=== PATIENT | female | born 1985 | race Caucasian/White ===

== ENCOUNTER 2025-01-21 12:58 | Outpatient (REF) | payer OTHER, SELFPAY ==
[2025-01-21 15:41] LABS: C Reactive Protein < 0.04 mg/dL (< or = 0.50); Magnesium 2.1 mg/dL (1.6-2.6)
[2025-01-21 16:13] LABS: Folate 7.4 ng/mL (> or = 4.0); Vitamin B12 344 pg/mL (200-900)
[2025-01-24 17:58] LABS: Transglutaminase IgA <1.0 U/mL
[2025-01-26 14:39] LABS: Vitamin D 25-OH, D2 <4 ng/mL; Vitamin D 25-OH, D3 20 ng/mL; Vitamin D 25-OH, Total 20 ng/mL (30-100)
== END 2025-01-21 12:59 | disposition home or self-care (01) ==
LOC: HO.LAB 12:58
PROVIDERS: PCP Nurse Practitioner Primary Care; Visit Provider Nurse Practitioner Family
DX: R19.7 Diarrhea, unspecified (principal); N18.9 Chronic kidney disease, unspecified; K58.9 Irritable bowel syndrome, unspecified; R10.9 Unspecified abdominal pain
CPT/HCPCS: 36415; 82306; 82607; 82746; 83735; 86140; 86364

== ENCOUNTER 2025-01-21 12:58 | Outpatient (AMB) | payer OTHER, SELFPAY ==
--- NOTE | 2025-01-21 13:04 | A.OFFVIS_ITS ---
Vital Signs 01/21/25 13:10 Height 5 ft 6 in Weight 138 lb BMI 22.3 BP 122/78 Blood Pressure Location Rt brachial Position Sitting Pulse 80 Pulse Source Pulse Oximeter Pulse Oximetry (%) 98 Oxygen Delivery Method Room Air Intake Visit Reasons: irregular bm Intake Note: NEW PATIENT for initial consult for fecal abn. Prior hx of colo/egd? N Chief Complaint; C/O frequent diarrhea and general GI upset. Pt denies any additional concerns at this time. 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 Patient was sent to us by her PCP. Patient has been dealing with irregular bowels mostly loose stools postprandially. Occasional blood in his stool. No known family history of inflammatory bowel disease. Patient reports that her symptoms have been going on for very long time. She is unsure if they ever rule out inflammatory bowel disease. Patient would like to go for colonoscopy. No family history of CRC that she knows of [facility] Medical History (Updated 01/28/25 @ 21:21 by Sommer Coelman, [facility]) IBS (irritable bowel syndrome) Anxiety and depression Family History (Reviewed 01/21/25 @ 13:11 by Ang Reddign [facility]) Mother Breast cancer Social History (Reviewed 01/21/25 @ 13:11 by Ang Redding [facility]) Alcohol intake: never Patient Tobacco Use Status: Never used Tobacco Review of Systems Const Denies weight gain and Denies weight loss ENT Reports no additional complaints, Denies dysphagia and Denies odynophagia Card Reports no additional complaints Resp Reports no additional complaints GI Denies abdominal pain, Denies belching, Denies melena, Denies bloating, Denies change in bowel habits, Reports GI cramping, Denies dysphagia, Denies excessive flatus, Denies dyspepsia, Denies heartburn, Denies diarrhea, Reports loose stools, Denies nausea, Denies odynophagia and Denies vomiting Musc Reports no additional complaints Neuro Reports no additional complaints Psych Reports no additional complaints Endo Reports no additional complaints Physical Exam Vital Signs: Last Vital Signs Pulse 80 01/21/25 13:10 BP 122/78 01/21/25 13:10 Pulse Ox 98 01/21/25 13:10 Oxygen Delivery Method Room Air 01/21/25 13:10 BMI result Body Mass Index 22.3 Const General: healthy appearing, no acute distress and well developed Nutritional Appearance: well nourished Orientation/consciousness: patient oriented x3 Resp Effort & Inspection: normal respiratory effort, able to speak in complete sentences, no tracheal deviation and symmetric chest movement Auscultation: clear to auscultation bilaterally Cardio Rate: regular rate GI Inspection: Yes normal to inspection and No distended Palpation (GI): Soft to palpation, not firm, nontender and No hepatosplenomegaly present Auscultation: normal bowel sounds General: Yes no CVA tenderness Back/Spine/Pelvis Back: no CVA tenderness Skin General skin exam: elasticity normal, turgor normal and dry skin Neuro General: patient oriented x3 Psych Appearance: grossly normal Mental Status: mental status grossly normal Assessment & Plan Assessment & Plan (1) Diarrhea: Code(s): R19.7 - Diarrhea, unspecified Qualifiers: Diarrhea type: functional diarrhea Qualified Code(s): K59.1 - Functional diarrhea (2) Abdominal pain: Code(s): R10.9 - Unspecified abdominal pain Qualifiers: Abdominal location: lower abdomen, unspecified Qualified Code(s): R10.30 - Lower abdominal pain, unspecified (3) IBS (irritable bowel syndrome): Code(s): K58.9 - Irritable bowel syndrome, unspecified Category: Medical Qualifiers: Irritable bowel syndrome type: with diarrhea Qualified Code(s): K58.0 - Irritable bowel syndrome with diarrhea (4) Postprandial abdominal bloating: Code(s): R14.0 - Abdominal distension (gaseous) Plan Will check vitamin levels, magnesium, transglutaminase, CRP, fecal calprotectin. Patient will be sent for diagnostic colonoscopy. What to expect before during and after procedure discussed with patient. Stressed the importance of good bowel prep and clear liquid diet day before procedure. We have discussed also low FODMAP diet. Patient was encouraged to avoid dietary triggers. List of food recommended as well as list of food to avoid given to patient. I will see patient after the procedure, sooner on as needed basis. She is agreeable to this plan and verbalizes understanding of instructions. She was given the opportunity to ask questions and all questions answered. Thank you for allowing me to participate in her care Orders: Orders Vitamin B12 and Folate 01/21/25 R19.7 - Diarrhea, unspecified Magnesium 01/21/25 N18.9 - Chronic kidney disease, unspecified Transglutaminase IgA 01/21/25 R10.9 - Unspecified abdominal pain C Reactive Protein 01/21/25 K58.9 - Irritable bowel syndrome, unspecified Vitamin D 25-OH (D2 and D3) 01/21/25 R19.7 - Diarrhea, unspecified Calprotectin, Fecal 01/21/25 R19.7 - Diarrhea, unspecified Medications: New bisacodyl (Dulcolax (bisacodyl)) take 4 tabs at noon the day before your colonoscopy 20 mg (4 x 5 mg) PO ONCE 1 day 4 tabs 0RF Z12.11 - Encounter for screening for malignant neoplasm of colon polyethylene glycol 3350 (Miralax) As directed by gastroenterology department at [facility] 238 grams PO ONCE 238 grams 0RF Z12.11 - Encounter for screening for malignant neoplasm of colon Coding Level of Care Code New Pt Level 4 (03955) Diagnoses Functional diarrhea K59.1 Diarrhea type: functional diarrhea Lower abdominal pain R10.30 Abdominal location: lower abdomen, unspecified Irritable bowel syndrome with diarrhea K58.0 Irritable bowel syndrome type: with diarrhea Postprandial abdominal bloating R14.0 Time Spent (min) 45 Comment 35 minutes spent with patient and additional 10 minutes spent reviewing her records
[2025-01-21 13:10] VITALS: BP 122/78; PULSE 80; O2SAT 98; BMI 22.3
== END 2025-01-21 14:03 | disposition home or self-care (01) ==
LOC: HO.HGI 12:59
PROVIDERS: Visit Provider Nurse Practitioner Family
DX: K58.0 Irritable bowel syndrome with diarrhea (principal); R14.0 Abdominal distension (gaseous)
CPT/HCPCS: 99204

== ENCOUNTER 2025-02-16 10:31 | Day surgery (SDC) | payer OTHER, SELFPAY ==
--- NOTE | 2025-02-16 11:15 | HO.ANESPROP2 ---
FORM[facility]LY [facility] Active Problems Active Problems: All Active Problems IBS (irritable bowel syndrome) (Acute) Past Medical History Medical History (Updated 01/28/25 @ 21:21 [facility] IBS (irritable bowel syndrome) Anxiety and depression Family History Family History Mother Breast cancer Family history of problems with anesthesia: No Surgical History History of Problems with Anesthesia: No Social History Social History Alcohol intake: never Patient Tobacco Use Status: Never used Tobacco Advance Directives: No Advance Directives Information Provided: Yes Meds Allergies Allergy/AdvReac Type Severity Reaction Status Date / Time Sutures Allergy Intermediate Unknown Verified 01/21/25 13:04 Home Medications ?Medication ?Instructions ?Recorded ?Confirmed ?Last Taken ?Type levonorgestrel 21 mcg/24 hr (up to intrauterine 01/21/25 Unknown History 8 years) 52 mg intrauterine device (Mirena) sertraline 100 mg tablet 100 mg PO DAILY 01/21/25 Unknown History triamcinolone acetonide 0.1 % 1 appl topical BID-TID 01/21/25 Unknown History topical cream Exam Airway Mallampati Class: II TM Dist: >3cm Neck ROM: Full Heart: rrr Lungs: cta Assessment and Plan Assessment Anesthesia Assessment: Anesthesia Plan Discussed and Chart Reviewed Final Anesthetic Review Family History of Problems with Anesthesia: No History of Problems with Anesthesia: No NPO: Yes ASA Class: II Final Preanesthetic Review: No Changes in Pt Med Stat, Meds/Allgs Chart Reviewed and Consent Obtained/Reviewed Patient Risk: Low Procedure Risk: Low Anesthetic Plan Anesthetic Plan: MAC: Disposition: Standard PACU
[2025-02-16 11:27] LABS: UPreg QC Valid YES; Urine Pregnancy NEGATIVE (NEGATIVE)
[2025-02-16 11:29] VITALS: BP 115/82; PULSE 90; RESP 16; TEMP 37.4; O2SAT 98; BMI 23.2
[2025-02-16] MEDS: Lactated Ringers 1,000 ML 100 ML IVCONT (11:43)
--- NOTE | 2025-02-16 11:46 | P.HPSUR_ITS ---
Pre-Procedural Eval Section A - 24 Hr Update-Section A only Date of Service: 02/16/25 Section B - Complete if H&P > 30 days Chief Complaint: Encounter for screening for malignant neoplasm of Relevant Family History (Specify if Yes): No Relevant Social History: None Present Medications: see Short Stay Collaborative assessment Medical History: Significant History ((irritable bowel syndrome) Anxiety and d epression) History of Previous Operations: No relevant previous surgery Allergies: Allergies Allergy/AdvReac Type Severity Reaction Status Date / Time Sutures Allergy Intermediate Unknown Verified 01/21/25 13:04 Review of Systems Sugical H&P ROS: Negative: Constitution, Cardiovascular, Respiratory, Neurological, Psychiatric, Hem-Onc, Allergic/Immunologic, Gastrointestinal, Genitourinary, Musculoskeletal, Integumentary, Endocrine and Eyes/Ears/Nose/Thro at Exam Surgical H&P Exam: Normal: HEENT, Normal: Heart, Normal: Lungs, Normal: Extremities, Normal: Abdomen, Normal: Skin and Normal: Neurological Plan Diagnosis/Plan: Unchanged I have reviewed the history and physical and performed a pertinent physical examination on my patient. No changes have occurred unless specified. Time Spent With Patient Time: Total time managing care of this patient today ____ minutes.
--- NOTE | 2025-02-16 12:23 | HO.OPN-COLON ---
Colonoscopy Operative Note Operative Note Date of Service: 02/16/25 Narrative: Operative Information Procedure Description: Colonoscopy Indication: abn bowel habit Anesthesia: MAC COLONOSCOPY Instrument: Olympus variable stiffness pediatric scope 190L Colonoscopy Monitoring: Vital signs and clinical assessment, continuous EKG monitoring, Pulse oximetry, Carbon Dioxide monitoring and blood pressure monitoring were done throughout the procedure. Colon withdrawal time was 10 minutes. Procedure: The patient was placed in the left lateral decubitis position and pre-procedure medications were administered. After a digital rectal examination of the ano-rectum, the video colonoscope was inserted into the rectum and advanced through the colon to the cecum/TI. The colonoscope was slowly withdrawn in a retrograde panoramic fashion and the colon mucosa was carefully examined including a retroflexed view of the rectum. Findings and interventions are described below. Procedure Difficulty: easy Findings: Terminal Ileum-normal, bx taken random colo bx taken from right, left and rectum Cecum:normal Ascending Colon: normal Transverse Colon -normal Descending Colon:normal Sigmoid Colon: normal Rectum: Retroflexion with small internal hemorrhoids seen, grade I Anorectum - normal Intervention: cold forceps bx Colon preparation: Jupiter Bowel Preparation Scale Right colon; 2 Transverse colon: 2 Left colon; 2 (0 = Unprepared colon segment with mucosa not seen due to solid stool that cannot be cleared. 1 = Portion of mucosa of the colon segment seen, but other areas of the colon segment not well seen due to staining, residual stool and/or opaque liquid. 2 = Minor amount of residual staining, small fragments of stool and/or opaque liquid, but mucosa of colon segment seen well. 3 = Entire mucosa of colon segment seen well with no residual staining, small fragments of stool or opaque liquid) Impression and Post Procedure Diagnosis: internal hemorrhoids Plan: High fiber diet leaflet Avoid straining at stool, epsom salts and sitz bath, anusol supps or cream Repeat Colonoscopy aged 45 or earlier if clinically indicated if bx neg then EGD Above findings were reviewed with the patient and relevant handouts were provided if indicated.
[2025-02-16 12:24] VITALS: BP 98/62; PULSE 69; RESP 16; TEMP 36.2; O2SAT 99
[2025-02-16 12:35] VITALS: BP 112/61; PULSE 69; RESP 16; TEMP 36.5; O2SAT 99
== END 2025-02-16 13:03 | disposition home or self-care (01) ==
PROVIDERS: Anesthesiology; PCP Nurse Practitioner Primary Care; Visit Provider Internal Medicine Gastroenterology
PROC: 0DJD8ZZ Inspection of Lower Intestinal Tract, Via Natural or Artificial Opening Endoscopic (ICD-10-PCS; CPT 45378; principal; 2025-02-16 12:40)
DX: R19.4 Change in bowel habit (principal); K59.1 Functional diarrhea; R10.30 Lower abdominal pain, unspecified; R14.0 Abdominal distension (gaseous); K64.0 First degree hemorrhoids; K64.4 Residual hemorrhoidal skin tags; K58.0 Irritable bowel syndrome with diarrhea; F41.8 Other specified anxiety disorders; Z97.5 Presence of (intrauterine) contraceptive device; Z91.048 Other nonmedicinal substance allergy status; Z79.899 Other long term (current) drug therapy
CPT/HCPCS: 45380; 81025; 88305; J2003; J2704

== ENCOUNTER → 2025-02-16 10:31 | Outpatient (BNV) | payer OTHER, SELFPAY | PROVIDERS: PCP Nurse Practitioner Primary Care; Visit Provider Internal Medicine Gastroenterology | DX: R19.4 Change in bowel habit (principal); K64.0 First degree hemorrhoids | CPT/HCPCS: 45380 ==